=== PATIENT | female | born 1975 | race Caucasian/White ===

== ENCOUNTER 2017-04-05 21:55 | Emergency (ER) | payer OTHER ==
[2017-04-05 22:01] VITALS: BP 98/60; PULSE 99; TEMP 99.4; BMI 34.9
[2017-04-05] MEDS ORDERED: KETOROLAC TROMETHAMINE 60 MG/2 ML VIAL IM ONE (23:08)
[2017-04-05] MEDS ORDERED: ONDANSETRON *ODT* 4 MG TABLET SL ONE (23:08)
[2017-04-05] MEDS ORDERED: RHO(D) IMMUNE GLOBULIN 1,500 UNIT DISP.SYRIN IM ONE (23:22)
[2017-04-05] MEDS ORDERED: KETOROLAC TROMETHAMINE 60 MG/2 ML VIAL ONE (23:38)
[2017-04-05] MEDS ORDERED: ONDANSETRON *ODT* 4 MG TABLET ONE (23:39)
--- NOTE | 2017-04-06 00:34 | PDOC ---
History of Present Illness - General Chief Complaint: Pain Stated Complaint: PAIN Time Seen by Provider: 04/05/17 22:27 - History of Present Illness Initial Comments: 04/06/17 00:25 CHIEF COMPLAINT: medical HISTORY OF PRESENT ILLNESS: 41 yo F presents to ED with vag bleeding, abdominal pain, headache, and generalized feeling of being unwell s/p taking Cytotec today. Patient reports that she was diagnosed with demise at 6 weeks gestation and was given Cytotec today to begin the expulsion process. Patient states she started feeling severe cramping and began bleeding on arrival to the ER. She reports nausea but denies any vomiting. LMP: 01/24/17 No recent travel or sick contacts. PAST MEDICAL HISTORY: Denies past medical history FAMILY HISTORY: Denies SOCIAL HISTORY: Denies tobacco, alcohol, illicit drug use. SURGICAL HISTORY: Denies ALLERGIES: No known drug allergies REVIEW OF SYSTEMS General/Constitutional: Chills. Denies weakness, weight change. HEENT: Denies change in vision. Denies ear pain or discharge. Denies sore throat. Cardiovascular: Denies chest pain or shortness of breath. Respiratory: Denies cough, wheezing, or hemoptysis. Gastrointestinal: Abdominal pain, nausea. Denies vomiting, diarrhea or constipation. Denies rectal bleeding. Genitourinary: Denies dysuria, frequency, or change in urination. Musculoskeletal: Denies joint or muscle swelling or pain. Denies neck or back pain. Skin and breasts: Denies rash or easy bruising. Neurologic:Headache. Denies vertigo, loss of consciousness, or loss of sensation. PHYSICAL EXAM General Appearance: Well-appearing, appropriately dressed. No apparent distress. HEENT: EOMI, PERRLA. No conjunctival pallor. No photophobia, scleral icterus. Respiratory/Chest: Lungs CTAB. No shortness of breath, chest tenderness, respiratory distress, accessory muscle use. No crackles, rales, rhonchi, stridor , wheezing, dullness Cardiovascular: RRR. S1, S2. No JVD, murmur, bradycardia, tachycardia. Gastrointestinal/Abdominal: B/l lower abd tenderness. Normal bowel sounds. Abdomen soft, non-distended. No organomegaly, pulsatile mass, guarding, hernia , hepatomegaly, splenomegaly. Musculoskeletal/Extremities: Normal inspection. FROM of all extremities, normal capillary refill. Pelvis Stable. No CVA tenderness. No tenderness to extremities, pedal edema, swelling, erythema or deformity. Integumentary: Appropriate color, dry, warm. 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 Fully oriented, alert. Appropriate mood/affect. Motor strength 5/5. No appreciable EOM palsy, facial droop or sensory deficit. 04/15/17 11:28 Past History - Past Medical History Allergies/Adverse Reactions: Allergies Allergy/AdvReac Type Severity Reaction Status Date / Time No Known Allergies Allergy Verified 04/05/17 22:01 Home Medications: Ambulatory Orders Misoprostol [Cytotec -] 200 mcg VG Q3H 04/05/17 Ibuprofen 800 mg PO TID PRN #21 tablet 04/06/17 Anemia: No Asthma: No Cancer: No Cardiac Disorders: No CVA: No COPD: No DVT: No Dementia: No Diabetes: No Dialysis: No GI Disorders: No Disorders: No HTN: No Hypercholesterolemia: No HIV: No Kidney Stones: No Liver Disease: No Psychiatric Problems: No Suicide Attempt (Hx): No Seizures: No Thyroid Disease: No Lung CA: No - Reproductive History Is Patient Now?: Yes (#): 2 Therapeutic (s) & number: Yes (1) Spontaneous : 1 - Immunization History Immunization Up to Date: Yes - Psycho/Social/Smoking Cessation Hx Anxiety: No Suicidal Ideation: No Smoking Status: No Smoking History: Never smoked Have you smoked in the past 12 months: No Number of Cigarettes Smoked Daily: 0 Cigars Per Day: 0 Information on smoking cessation initiated: No Hx Alcohol Use: No Drug/Substance Use Hx: No Substance Use Type: None Hx Substance Use Treatment: No *Physical Exam - Vital Signs Last Vital Signs Temp Pulse Resp BP Pulse Ox 99.4 F 99 H 18 98/60 96 04/05/17 21:57 04/05/17 21:57 04/05/17 21:57 04/05/17 21:57 04/05/17 21:57 ED Treatment Course - Medications Given in the ED: ED Medications Discontinued Medications Generic Name Dose Route Start Last Admin Trade Name Freq PRN Reason Stop Dose Admin Ketorolac Tromethamine 60 mg 04/05/17 23:08 04/06/17 00:00 Toradol Injection - IM 04/05/17 23:09 60 mg ONCE ONE Administration Ondansetron HCl 8 mg 04/05/17 23:08 04/06/17 00:00 Zofran Odt - SL 04/05/17 23:09 8 mg ONCE ONE Administration Medical Decision Making - Medical Decision Making 04/06/17 00:34 41 yo F presents to ED with vag bleeding, abdominal pain, headache, and generalized feeling of being unwell s/p taking Cytotec today. -Toradol 60 mg IM -Zofran 8 mg Patient's blood type is AB+; she has not received Rhogam for this . Will administer 250 mcg Rhogam. *DC/Admit/Observation/Transfer Diagnosis at time of Disposition: Medical - Discharge Dispostion Disposition: HOME Condition at time of disposition: Stable Admit: No - Prescriptions Prescriptions: Ibuprofen 800 mg PO TID PRN #21 tablet PRN Reason: Pain - Referrals Referrals: Sparkle Nair MD [Primary Care Provider] - Branden Rebolledo MD [Staff Physician] - - Patient Instructions Printed Discharge Instructions: DI for Therapeutic : Medical, DI for Abdominal Pain-Adult Additional Instructions: Take ibuprofen for abdominal cramping, you may take up to 800 mg three times a day. Please follow up with Dr. Rebolledo by the end of the week. If you experience any fever, chills, persistent vomiting, or any new or concerning symptoms, please return to the ER.
--- NOTE | 2017-04-06 00:38 | PDOC ---
*Physical Exam - Vital Signs Last Vital Signs Temp Pulse Resp BP Pulse Ox 99.4 F 99 H 18 98/60 96 04/05/17 21:57 04/05/17 21:57 04/05/17 21:57 04/05/17 21:57 04/05/17 21:57 ED Treatment Course - Medications Given in the ED: ED Medications Discontinued Medications Generic Name Dose Route Start Last Admin Trade Name Freq PRN Reason Stop Dose Admin Ketorolac Tromethamine 60 mg 04/05/17 23:08 04/06/17 00:00 Toradol Injection - IM 04/05/17 23:09 60 mg ONCE ONE Administration Ondansetron HCl 8 mg 04/05/17 23:08 04/06/17 00:00 Zofran Odt - SL 04/05/17 23:09 8 mg ONCE ONE Administration Medical Decision Making - Medical Decision Making 04/06/17 00:37 agree with care from AG Brito *DC/Admit/Observation/Transfer Diagnosis at time of Disposition: Medical - Prescriptions Prescriptions: Ibuprofen 800 mg PO TID PRN #21 tablet PRN Reason: Pain - Referrals Referrals: Sparkle Nair MD [Primary Care Provider] - Branden Rebolledo MD [Staff Physician] - - Patient Instructions Printed Discharge Instructions: DI for Abdominal Pain-Adult, DI for Therapeutic : Medical Additional Instructions: Take ibuprofen for abdominal cramping, you may take up to 800 mg three times a day. Please follow up with Dr. Rebolledo by the end of the week. If you experience any fever, chills, persistent vomiting, or any new or concerning symptoms, please return to the ER.
== END 2017-04-06 02:28 | disposition home or self-care (01) ==
LOC: JER 21:55
PROC: 3E0233Z Introduction of Anti-inflammatory into Muscle, Percutaneous Approach (ICD-10-PCS; principal; 2017-04-05)
PROC: 3E023GC Introduction of Other Therapeutic Substance into Muscle, Percutaneous Approach (ICD-10-PCS; 2017-04-05)
DX: O03.9 Complete or unspecified spontaneous abortion without complication (principal)
CPT/HCPCS: 86850; 86900; 86901; 86999; 99282-25; J1561